=== PATIENT | female | born 1965 | race Caucasian/White ===

== ENCOUNTER 2024-04-29 17:44 | Emergency (ER) | payer OTHER, SELFPAY ==
[2024-04-29 17:46] VITALS: BP 132/72; PULSE 73; TEMP 36.7; O2SAT 98; BMI 33.0
--- NOTE | 2024-04-29 17:54 | PC.NURSE ---
ER at bedside using tetracaine drops to left eye
[2024-04-29] MEDS: TETRACAINE HCL 0.5% OP SOL 80 DROP/4 ML BOTTLE OP (17:56)
[2024-04-29] MEDS: FLUORESCEIN SODIUM 1 MG STRIP OP (17:56)
--- NOTE | 2024-04-29 18:02 | ED.EYEPROB1 ---
HPI - Eye Problem General Chief complaint: Eye Problems Stated complaint: EYE PAIN Time Seen by Provider: 04/29/24 18:02 Source: patient Mode of arrival: walk-in History of Present Illness HPI Narrative: Patient is here complaining of a foreign body sensation in her left eye. She says that when she woke up this morning she rubbed her eye a little bit and started having a foreign body sensation. She has had some lacrimation. She has not had photosensitivity she just feels like there might be something in her eye but she does not know what it would be. She has no other complaints today. She has no blurred vision double vision or loss of vision. She is asymptomatic in right eye. She has no headache. Related Data Home Medications ?Medication ?Instructions ?Recorded ?Confirmed No Known Home Medications 04/29/24 04/29/24 Allergies Allergy/AdvReac Type Severity Reaction Status Date / Time No Known Drug Allergies Allergy Verified 04/29/24 17:51 Exam Narrative Exam Narrative: Well-hydrated well-nourished female appears no apparent distress. She is not wearing contact lenses. The right eye appears normal with no injection her left eye has very minimal scleral injection. There is no swelling of the lids no evidence of infections of the eyelashes. No other facial swelling or evidence of shingles. Tetracaine drops were applied and she had complete resolution of all her symptomatology. The lids were double everted at that time and there was no residual foreign body. We did then apply fluorescein stain and under cobalt blue slit lamp examination a small abrasion was noted at the 9 o'clock position at the limbus. Constitutional Vital Signs, click to edit/add: Last Vital Signs Temp 98.0 F 04/29/24 17:46 Pulse 73 04/29/24 17:46 Resp 16 04/29/24 17:46 BP 132/72 04/29/24 17:46 Pulse Ox 98 04/29/24 17:46 O2 Del Method Room Air 04/29/24 17:46 Course Vital Signs Vital signs: Vital Signs Temperature 98.0 F 04/29/24 17:46 Pulse Rate 73 04/29/24 17:46 Respiratory Rate 16 04/29/24 17:46 Blood Pressure 132/72 04/29/24 17:46 Pulse Oximetry 98 04/29/24 17:46 Oxygen Delivery Method Room Air 04/29/24 17:46 Temperature 98.0 F 04/29/24 17:46 Pulse Rate 73 04/29/24 17:46 Respiratory Rate 16 04/29/24 17:46 Blood Pressure 132/72 04/29/24 17:46 Pulse Oximetry 98 04/29/24 17:46 Oxygen Delivery Method Room Air 04/29/24 17:46 MDM - Eye Problem MDM Narrative Medical decision making narrative: Eye examination noted above. Conclusion a small corneal abrasion Discharge Plan Discharge Stand Alone Forms: Portal Instructions Chief Complaint: Eye Problems Clinical Impression: Corneal abrasion Patient Disposition: Home, Self-Care Time of Disposition Decision: 18:06 Prescriptions / Home Meds: No Action No Known Home Medications Print Language: Citizen [place] Additional Instructions: Voltaren drops over the weekend. If symptoms persist on Thursday follow-up with eye doctor. Cold compresses and eye rest as described Referrals: Physician,Non-Staff, MD [Primary Care Provider] - 1 week
[2024-04-29 18:18] VITALS: PULSE 84; O2SAT 97
== END 2024-04-29 18:18 | disposition home or self-care (01) ==
PROVIDERS: Emergency Provider Emergency Medicine Emergency Medical Services
DX: S05.02XA Injury of conjunctiva and corneal abrasion without foreign body, left eye, initial encounter (principal); X58.XXXA Exposure to other specified factors, initial encounter
CPT/HCPCS: 99283